=== PATIENT | female | born 2000 | race Caucasian/White ===

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

== ENCOUNTER 2022-09-01 00:26 | Observation (INO) | payer MEDICAID, OTHER ==
[~2022-09-01] VITALS: Ht 152.4 cm; Wt 61.7 kg
[2022-09-01] MEDS ORDERED: LACTATED RINGERS 1,000 ML IV ONE (01:30)
[2022-09-01] MEDS ORDERED: LACTATED RINGERS 1,000 ML IV SCH (01:30)
[2022-09-01 02:57] LABS: CLARITY URINE CLEAR (CLEAR); COLOR URINE YELLOW (YELLOW); KETONES URINE NEGATIVE (NEGATIVE); LEUKOCYTE ESTERASE URINE 1+ (NEGATIVE); NITRITE URINE NEGATIVE (NEGATIVE); OCCULT BLOOD URINE NEGATIVE (NEGATIVE); PH URINE 5.5 (4.5-8.0); PROTEIN URINE NEGATIVE (NEGATIVE); SPECIFIC GRAVITY URINE 1.012 (1.005-1.030); UROBILINOGEN URINE 0.2 E.U./dL (0.2-1.0)
[2022-09-01] MEDS ORDERED: CEFAZOLIN 2,000 MG in DEXT 5% WATER 100 ML IV NR (03:30)
== END 2022-09-01 04:30 | disposition home or self-care (01) ==
LOC: 8 EST LDRP 00:26
PROVIDERS: ADMIT Obstetrics & Gynecology; ATTEND Obstetrics & Gynecology
DX: O62.9 Abnormality of forces of labor, unspecified (principal); O99.891 Other specified diseases and conditions complicating pregnancy; M54.9 Dorsalgia, unspecified; Z3A.36 36 weeks gestation of pregnancy
CPT/HCPCS: 59025; 76805; 76818; 81003; 96361; 96365; G0378; J0690; J7060; 96360; 99281